=== PATIENT | female | born 1975 | race Caucasian/White ===

== ENCOUNTER → 2018-05-30 | Outpatient (REF) ==
[~2018-05-30] MED LIST: BACTRIM DS 8001 TAB PO; K-DUR20 MEQ PO; NEXIUM 20MG20 MG PO; ZYRTEC 10MG10 MG PO
== END ==
LOC: ZLAB.WCH 09:33
DX: Z01.89 Encounter for other specified special examinations (principal)

== ENCOUNTER 2018-05-31 13:49 | Day surgery (SDC) | payer MEDICAID ==
[~2018-05-31] VITALS: Ht 167.6 cm; Wt 62.7 kg
[2018-05-31] VITALS (9 sets, daily range): BP systolic 114–153; BP diastolic 54–76; PULSE 60–107; TEMP 97.8–98.5
--- NOTE | 2018-05-31 14:00 | NUR ---
PATIENT ADMITED INTO ROOM 325 FROM [facility]. DAUGHTER AT BEDSIDE WITH PATIENT. A&O. VSS. REPORTS MILD RIGHT FLANK PAIN. DENIES NEED FOR PAIN MEDS AT THIS TIME AND REFUSES MORPHINE PSYCHIATRIC REGISTERED NURSE. PATIENT REPORTS N/V WITH IV PAIN MEDS. IV FLUIDS INFUSING INTO RIGHT AC. NPO. CONSENT ON CHART. HEALTH HISTORY OBTAINED.
[2018-05-31] MEDS ORDERED: NEXIUM 20MG20 MG PO (14:52)
[2018-05-31] MEDS ORDERED: BACTRIM DS 8001 TAB PO (14:53)
[2018-05-31] MEDS ORDERED: ZYRTEC 10MG10 MG PO (14:53)
[2018-05-31] MEDS ORDERED: K-DUR20 MEQ PO (14:54)
--- NOTE | 2018-05-31 16:19 | NUR ---
SW met with the patient to discuss discharge plan. The patient lives in [place] with her [id number] son, Mateo. She states that family is watching him while she is here. She reports independence with ADLs and does not use any DME. 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 The patient's PCP is Dr. Pablo Cramer and she receives her medications at [facility]. She reports no difficulties obtaining her meds. The patient does not have advanced directives and she was not interested in completing them at this time. The patient plans to return home with her son upon discharge. No additional needs at this time.
--- NOTE | 2018-05-31 16:30 | NUR ---
PATIENT GOING DOWN TO OR
--- NOTE | 2018-05-31 19:45 | NUR ---
PT ARRIVED FROM PACU VIA BED, WITH C/O PAIN RATED AT 10/10 DISCRIBED BURNING. PT CRYING AND UNCOMFORTABLE.
--- NOTE | 2018-05-31 20:38 | NUR ---
PT IN BED WITH HOB ELEVATED TO 45 DEGREE ANGLE. PT HAS AMBULATED TO THE BATHROOM AND BACK. PT EATING PERSONAL DIET WITH NO DIFFICULTIES. PT HAD PAIN RATED AT 10/10 THAT WAS BURNING, BUT SOON SHE URINATED THE PAIN WENT AWAY. PT ADVISES PAIN IS 0/10 AT THIS TIME. PT WAS GIVEN PERCOCET 1 TAB FOR PAIN. PT A/O X4, O2 ON RA 96%. CALL LIGHT WITHIN REACH AND FAMILY WITH PT AT THIS TIME.
[2018-05-31 21:19] LABS: CALCIUM 9.1 mg/dL (8.4-10.2); CREATININE, serum 0.62 (0.52-1.25); POTASSIUM 3.6 mmol/L (3.4-5.0)
--- NOTE | 2018-06-01 03:26 | NUR ---
PT RESTING IN BED. PT HAS BEEN UP TO THE BATHROOM AND URINE IS STILL RED. PT DENIES PAIN OR DISCOMFORT AT THIS TIME. PT HAS NO NEEDS AT THIS TIME, CALL LIGHT WITHIN REACH.
[2018-06-01 04:40] VITALS: BP 107/56; PULSE 72; TEMP 98.6
--- NOTE | 2018-06-01 06:32 | NUR ---
PT AWAKE IN BED. PT HAS BEEN UP TO USE THE BATHROOM. URINE STILL GROSS HEMATURIA. PT ALSO ADVISES THAT HE HAS NOT HAD A BM IN 3 DAYS AND THAT SHE HAS CRAMPING LIKE A PERIOD, BUT SHE DOES NOT GET PERIODS ANYMORE, CALL LIGHT WITHIN REACH.
[2018-06-01 08:15] VITALS: BP 114/62; PULSE 63; TEMP 98.1
--- NOTE | 2018-06-01 11:30 | NUR ---
First visit from the associate sales representative. No needs right now.
--- NOTE | 2018-06-01 12:00 | NUR ---
PATIENT DISCHARGING HOME VIA WHEELCHAIR TO PERSONAL VEHICLE WITH DAUGHTER. GAVE DISCHARGE INSTRUCTIONS, PRESCRIPTIONS AND FOLLOW UP APT. ANSWERED ALL QUESTIONS/CONCERNS. DC'D RIGHT AC IV, COVERED WITH GAUZE & COBAN. PATIENT DISCHARGED WITH PERSONAL BELONGINGS.
== END 2018-06-01 12:00 | disposition home or self-care (01) ==
LOC: SDCO 13:49 → SURG 13:49 → SDCO 06-01 12:00
PROVIDERS: Urology
DX: N13.6 Pyonephrosis (principal); K21.9 Gastro-esophageal reflux disease without esophagitis; Z98.84 Bariatric surgery status; Z79.899 Other long term (current) drug therapy; Z90.710 Acquired absence of both cervix and uterus
CPT/HCPCS: OP; A4216; C1769; C2617; J0690; J0696; J2270; J2405; J2550; J2704; J3010; J7030; J7120; Q9967

== ENCOUNTER 2018-06-28 14:01 | Day surgery (SDC) | payer MEDICAID ==
[~2018-06-28] VITALS: Ht 167.6 cm; Wt 59.0 kg
[~2018-06-28 14:01] MED LIST changes: -BACTRIM DS 8001 TAB PO; +CIPRO 500MG TA500 MG PO; -K-DUR20 MEQ PO; +OPTISOURCE TAB1 EAC1 PO
[2018-06-28 15:25] VITALS: BP 108/65; PULSE 58; TEMP 98.1
[2018-06-28 18:18] VITALS: BP 108/67; PULSE 44; TEMP 98.1
--- NOTE | 2018-06-28 18:18 | NUR ---
Patient alert and oriented, answers questions appropriately. No c/o pain. No c/o urinary frequency, burning or hesitancy. Urinated and ambulated. Tolerated oral intake.
[2018-06-28 18:19] VITALS: BP 114/73; PULSE 53
--- NOTE | 2018-06-28 18:35 | NUR ---
PATIENT DISCHARGING HOME VIA PERSONAL VEHICLE WITH DAUGHTER. GAVE DISCHARGE INSTRUCTIONS, PRESCRIPTIONS AND FOLLOW UP APT. DC'D LEFT AC. IV CATH TIP INTACT AND PATIENT TOLERATED WELL. COVERED SITE WITH GAUZE & TAPE. PATIENT DISCHARGED.
== END 2018-06-28 18:45 | disposition home or self-care (01) ==
LOC: SDCO 14:01 → SURG 18:03 → SDCO 18:45
DX: N20.0 Calculus of kidney (principal); Z87.442 Personal history of urinary calculi; G89.29 Other chronic pain; M54.5 Low back pain; R12 Heartburn; Z79.899 Other long term (current) drug therapy
CPT/HCPCS: OP; C1769; J0690; J1100; J1885; J2250; J2405; J2704; J3010; J7120; Q9967

== ENCOUNTER 2019-03-31 11:58 | Day surgery (SDC) | payer BC ==
[~2019-03-31] VITALS: Ht 167.6 cm; Wt 61.3 kg
[2019-03-31] VITALS (7 sets, daily range): BP systolic 96–127; BP diastolic 39–60; PULSE 55–77; TEMP 98–98.2
--- NOTE | 2019-03-31 19:10 | NUR ---
PATIENT TO ROOM FROM PACU AT 1905, AMB TO BATHROOM ASSIST BY STAFF NURSE, PATIENT VOIDED AND AMB BACK TO BED AND DENIES ANY NEED FOR PAIN MED. PATIENT ORIENTED TO ROOM,CALL LIGHT. PATIENT VOICED AWARENESS TO CALL FOR OUT OF BED ACTIVITIES WITH VOIDING. TOLERATING SIPS OF WATER.
--- NOTE | 2019-03-31 20:45 | NUR ---
IV SITE REMOVED WITH NO COMPLAINTS FROM PATIENT. PATIENT'S SO PRESENT IN ROOM TO TAKE PATIENT HOME. NO QUESTIONS CURRENTLY.
--- NOTE | 2019-03-31 21:10 | NUR ---
Pt. has met discharge criteria. Discharge instructions reviewed with pt. Scripts, health summery and education reviewed with the pt. Pt. voices understanding. INT removed prior by LUZMA Styles. Pt. escorted out by RADHA.
== END 2019-03-31 21:10 | disposition home or self-care (01) ==
LOC: SDCO 11:58 → SURG 19:15 → SDCO 21:10
DX: N20.1 Calculus of ureter (principal); N39.0 Urinary tract infection, site not specified; M54.5 Low back pain; Z88.1 Allergy status to other antibiotic agents; Z83.3 Family history of diabetes mellitus
CPT/HCPCS: OP; C1769; J0690; J1100; J1885; J1940; J2405; J2704; J3010; J7120; Q9967